=== PATIENT | female | born 1990 | race Two or more races ===

== ENCOUNTER 2017-03-07 13:38 | Inpatient (IN) | payer BC ==
[~2017-03-07 13:38] MED LIST: Bupivacaine 0.25% 10 ML SDV ONE
[2017-03-07] MEDS ORDERED: Lidocaine 1% 50 ML MDV INJECT PRN (14:20)
[2017-03-07] MEDS ORDERED: Sodium Chloride 0.9% 10 ML Syringe FLUSH PRN (14:20)
[2017-03-07] MEDS ORDERED: Oxytocin/Lactated Ringers 10 UNIT/1,000 ML BAG IV SCH (14:30)
[2017-03-07] MEDS: Lactated Ringers 1,000 ML IV SCH ×2 (15:01→18:52)
[2017-03-07] MEDS: Oxytocin/Lactated Ringers 10 UNIT/1,000 ML BAG IV SCH (15:02)
--- NOTE | 2017-03-07 16:11 | PCM.PREANE ---
Preanesthetic Assessment - Anesthesia/Transfusion/Family Hx Anesthesia History: Prior Anesthesia Without Reaction Family History of Anesthesia Reaction: No Transfusion History: No Prior Transfusion(s) - Review of Systems General: No Symptoms Pulmonary: Shortness of Breath (asthma- albuteral inhaler within a week) Cardiovascular: No Symptoms Gastrointestinal: No symptoms Neurological: No Symptoms Other: Reports: None - Physical Assessment Respiratory Rate: 18 Vital Signs: Last Vital Signs Temp 98.1 F 03/07/17 14:20 Pulse 102 H 03/07/17 14:20 Resp 18 03/07/17 14:20 BP 140/87 03/07/17 14:20 Pulse Ox Height: 5 ft 7 in Weight: 97.522 kg ASA Class: 2 Mental Status: Alert & Oriented x3 Airway Class: Mallampati = 1 Dentition: Reports: Normal Dentition Thyro-Mental Finger Breadths: 3 Mouth Opening Finger Breadths: 3 ROM/Head Extension: Full Lungs: Clear to auscultation, Normal respiratory effort Cardiovascular: Regular Rate, Regular Rhythm - Lab Values: platelets 168 - Allergies Allergies/Adverse Reactions: Allergies Allergy/AdvReac Type Severity Reaction Status Date / Time No Known Allergies Allergy Verified 11/15/16 01:48 - Blood Blood Available: No - Acknowledgements Anesthesia Type Planned: Epidural Pt an Appropriate Candidate for the Planned Anesthesia: Yes Alternatives and Risks of Anesthesia Discussed w Pt/Guardian: Yes Pt/Guardian Understands and Agrees with Anesthesia Plan: Yes PreAnesthesia Questionnaire Cardiovascular History: Reports: None Respiratory History: Reports: Asthma Gastrointestinal History: Reports: None : 1 (40 weeks) Para: 0 Musculoskeletal History: Reports: None - Past Surgical History GI Surgical History: Reports: Other (See Below) (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 ) Female Surgical History: Reports: Salpingo-Oophorectomy, Other (See Below) ( scar tissue clean up abdomen) Musculoskeletal Surgical History: Reports: Arthroscopic Knee - SUBSTANCE USE Smoking Status *Q: Never Smoker Tobacco Use Within Last Twelve Months: No Second Hand Smoke Exposure: Yes Days Per Week of Alcohol Use: 0 Recreational Drug Use History: No - HOME MEDS Home Medications: Home Meds Prenat Vit Comb.10/Iron/Fa/Dha [Vitafol-OB + DHA] 1 each PO DAILY 08/01/16 [ History] Acetaminophen [Tylenol] 650 mg PO BID PRN 08/19/16 [History] Albuterol [Ventolin HFA] 2 puff INH ONETIME PRN 03/07/17 [History] - CURRENT (IN HOUSE) MEDS Current Meds: Current Medications Lactated Ringer's (Ringers, Lactated) 1,000 mls @ 100 mls/hr IV ASDIRECTED HAROON Last Admin: 03/07/17 15:01 Dose: 100 mls/hr Oxytocin/Lactated Ringer's (Pitocin In Lr 10 Units/1,000 Ml) 10 unit in 1,000 mls @ 500 mls/hr IV .CONTINUOUS HAROON Oxytocin/Lactated Ringer's (Pitocin In Lr 10 Units/1,000 Ml) 10 unit in 1,000 mls @ 12 mls/hr IV TITRATE [place]; 2 MUNITS/MIN PRN Reason: Protocol Last Admin: 03/07/17 15:02 Dose: 2 munits/min, 12 mls/hr Lidocaine HCl (Xylocaine 1%) 50 ml INJECT ONETIME PRN PRN Reason: Other Sodium Chloride (Saline Flush) 10 ml FLUSH ASDIRECTED PRN PRN Reason: Keep Vein Open
[2017-03-07] MEDS ORDERED: ePHEDrine 50 MG/ML SDV IVPUSH PRN (18:40)
[2017-03-07] MEDS ORDERED: diphenhydrAMINE 50 MG/ML SDV IVPUSH PRN (18:40)
[2017-03-07] MEDS ORDERED: fentaNYL 100 MCG/2 ML SDV EPIDUR PRN (18:40)
[2017-03-07] MEDS: Bupivacaine/fentaNYL/NS 100 ML Bag EPIDUR SCH (18:53)
[2017-03-07] MEDS: Ondansetron 4 MG/2 ML SDV IVPUSH PRN (20:06)
[2017-03-07] MEDS: Acetaminophen 325 MG Tab PO PRN (20:21)
--- NOTE | 2017-03-08 01:59 | PCM.PNLD ---
Labor Progress Note - VS & Meds Vital Signs: Last Vital Signs Temp 36.7 C 03/07/17 14:20 Pulse 102 H 03/07/17 14:20 Resp 18 03/07/17 16:24 BP 140/87 03/07/17 14:20 Pulse Ox Active Medications: Current Medications Acetaminophen (Tylenol) 650 mg PO Q6H PRN PRN Reason: Headache/Pain Last Admin: 03/07/17 20:21 Dose: 650 mg Diphenhydramine HCl (Benadryl) 25 mg IVPUSH Q6H PRN PRN Reason: pruritis Ephedrine Sulfate (Ephedrine Sulfate) 5 mg IVPUSH ASDIRECTED PRN PRN Reason: Hypotension Fentanyl (Sublimaze) 100 mcg EPIDUR Q3H PRN PRN Reason: Pain Last Admin: 03/07/17 18:57 Dose: 100 mcg Fentanyl/Bupivacaine HCl (Fentanyl/Bupivacaine/Ns 2 Mcg-0.125% 100 Ml) 100 ml EPIDUR ASDIRECTED HAR[place]ON Last Admin: 03/07/17 18:53 Dose: 100 ml Lactated Ringer's (Ringers, Lactated) 1,000 mls @ 100 mls/hr IV ASDIRECTED HAR[place]ON Last Admin: 03/07/17 18:52 Dose: 999 mls/hr Oxytocin/Lactated Ringer's (Pitocin In Lr 10 Units/1,000 Ml) 10 unit in 1,000 mls @ 500 mls/hr IV .CONTINUOUS HAROON Oxytocin/Lactated Ringer's (Pitocin In Lr 10 Units/1,000 Ml) 10 unit in 1,000 mls @ 12 mls/hr IV TITRATE [place]ON; 2 MUNITS/MIN PRN Reason: Protocol Last Titration: 03/08/17 01:36 Dose: 10 munits/min, 60 mls/hr Lidocaine HCl (Xylocaine 1%) 50 ml INJECT ONETIME PRN PRN Reason: Other Ondansetron HCl (Zofran) 4 mg IVPUSH Q8H PRN PRN Reason: Nausea/Vomiting Last Admin: 03/07/17 20:06 Dose: 4 mg Sodium Chloride (Saline Flush) 10 ml FLUSH ASDIRECTED PRN PRN Reason: Keep Vein Open - Uterine Contractions Uterine Monitoring Mode: External [place] Contraction Intensity: Irritability Uterine Resting Tone: Soft - Monitoring Heart Rate (FHR) Baseline: 145 Accelerations: Present, 15x15 Decelerations: None Strip Review: Category I - Labor Progress (Free Text) Labor Progress: Pitocin being initiated. Reassuring FHT Induction for non-reactive NST and decreased movement at 40w.
[2017-03-08] MEDS: Lactated Ringers 1,000 ML IV SCH ×2 (02:00→07:13)
--- NOTE | 2017-03-08 02:07 | PCM.PNLD ---
Labor Progress Note - VS & Meds Vital Signs: Last Vital Signs Temp 36.7 C 03/07/17 14:20 Pulse 102 H 03/07/17 14:20 Resp 18 03/07/17 16:24 BP 140/87 03/07/17 14:20 Pulse Ox Active Medications: Current Medications Acetaminophen (Tylenol) 650 mg PO Q6H PRN PRN Reason: Headache/Pain Last Admin: 03/07/17 20:21 Dose: 650 mg Diphenhydramine HCl (Benadryl) 25 mg IVPUSH Q6H PRN PRN Reason: pruritis Ephedrine Sulfate (Ephedrine Sulfate) 5 mg IVPUSH ASDIRECTED PRN PRN Reason: Hypotension Fentanyl (Sublimaze) 100 mcg EPIDUR Q3H PRN PRN Reason: Pain Last Admin: 03/07/17 18:57 Dose: 100 mcg Fentanyl/Bupivacaine HCl (Fentanyl/Bupivacaine/Ns 2 Mcg-0.125% 100 Ml) 100 ml EPIDUR ASDIRECTED HAR[place]ON Last Admin: 03/07/17 18:53 Dose: 100 ml Lactated Ringer's (Ringers, Lactated) 1,000 mls @ 100 mls/hr IV ASDIRECTED HAROON Last Admin: 03/07/17 18:52 Dose: 999 mls/hr Oxytocin/Lactated Ringer's (Pitocin In Lr 10 Units/1,000 Ml) 10 unit in 1,000 mls @ 500 mls/hr IV .CONTINUOUS HAR[place]ON Oxytocin/Lactated Ringer's (Pitocin In Lr 10 Units/1,000 Ml) 10 unit in 1,000 mls @ 12 mls/hr IV TITRATE [place]; 2 MUNITS/MIN PRN Reason: Protocol Last Titration: 03/08/17 01:47 Dose: 8 munits/min, 48 mls/hr Lidocaine HCl (Xylocaine 1%) 50 ml INJECT ONETIME PRN PRN Reason: Other Ondansetron HCl (Zofran) 4 mg IVPUSH Q8H PRN PRN Reason: Nausea/Vomiting Last Admin: 03/07/17 20:06 Dose: 4 mg Sodium Chloride (Saline Flush) 10 ml FLUSH ASDIRECTED PRN PRN Reason: Keep Vein Open - Uterine Contractions Uterine Monitoring Mode: External [place] Contraction Intensity: Irritability Uterine Resting Tone: Soft - Monitoring Heart Rate (FHR) Baseline: 145 Accelerations: Present, 15x15 Decelerations: None Strip Review: Category I - Vaginal Exam Dilation (cm): 4.5 Effacement (Percent): 100 Station: -2 Cervical Position: Midposition Vaginal Exam Comment: BBOW - Labor Progress (Free Text) Labor Progress: Doing well. Category I tracing now. Tolerating pitocin.
[2017-03-08] MEDS: Acetaminophen 325 MG Tab PO PRN ×2 (02:20→07:07)
[2017-03-08] MEDS: Ondansetron 4 MG/2 ML SDV IVPUSH PRN (06:46)
[2017-03-08] MEDS ORDERED: WATER IV ONE ×2 (07:30)
[2017-03-08] MEDS ORDERED: GENTAMICIN IV ONE ×2 (07:30)
[2017-03-08] MEDS ORDERED: Ampicillin 2 GM in Sodium Chloride 0.9% 100 ML IV ONE (07:30)
[2017-03-08] MEDS ORDERED: DEXTROSE 5% IV ONE ×2 (07:30)
[2017-03-08] MEDS: Oxytocin/Lactated Ringers 10 UNIT/1,000 ML BAG IV SCH (08:11)
[2017-03-08] MEDS: Bupivacaine/fentaNYL/NS 100 ML Bag EPIDUR SCH (08:52)
--- NOTE | 2017-03-08 09:56 | PCM.PNLD ---
Labor Progress Note - VS & Meds Vital Signs: Last Vital Signs Temp 38.2 C H 03/08/17 07:07 Pulse 102 H 03/07/17 14:20 Resp 18 03/07/17 16:24 BP 140/87 03/07/17 14:20 Pulse Ox Active Medications: Current Medications Acetaminophen (Tylenol) 650 mg PO Q6H PRN PRN Reason: Headache/Pain Last Admin: 03/08/17 07:07 Dose: 650 mg Diphenhydramine HCl (Benadryl) 25 mg IVPUSH Q6H PRN PRN Reason: pruritis Ephedrine Sulfate (Ephedrine Sulfate) 5 mg IVPUSH ASDIRECTED PRN PRN Reason: Hypotension Fentanyl (Sublimaze) 100 mcg EPIDUR Q3H PRN PRN Reason: Pain Last Admin: 03/07/17 18:57 Dose: 100 mcg Fentanyl/Bupivacaine HCl (Fentanyl/Bupivacaine/Ns 2 Mcg-0.125% 100 Ml) 100 ml EPIDUR ASDIRECTED HAROON Last Admin: 03/08/17 08:52 Dose: 100 ml Lactated Ringer's (Ringers, Lactated) 1,000 mls @ 100 mls/hr IV ASDIRECTED HAROON Last Admin: 03/08/17 07:13 Dose: 100 mls/hr Oxytocin/Lactated Ringer's (Pitocin In Lr 10 Units/1,000 Ml) 10 unit in 1,000 mls @ 500 mls/hr IV .CONTINUOUS [place] Oxytocin/Lactated Ringer's (Pitocin In Lr 10 Units/1,000 Ml) 10 unit in 1,000 mls @ 12 mls/hr IV TITRATE [place]; 2 MUNITS/MIN PRN Reason: Protocol Last Admin: 03/08/17 08:11 Dose: 8 munits/min, 48 mls/hr Lidocaine HCl (Xylocaine 1%) 50 ml INJECT ONETIME PRN PRN Reason: Other Ondansetron HCl (Zofran) 4 mg IVPUSH Q8H PRN PRN Reason: Nausea/Vomiting Last Admin: 03/08/17 06:46 Dose: 4 mg Sodium Chloride (Saline Flush) 10 ml FLUSH ASDIRECTED PRN PRN Reason: Keep Vein Open Discontinued Medications Ampicillin Sodium 2 gm/ Sodium (Chloride) 100 mls @ 200 mls/hr IV NOW ONE Stop: 03/08/17 07:59 Last Admin: 03/08/17 07:44 Dose: 200 mls/hr Gentamicin Sulfate 112 mg/ (Dextrose/Water) 102.8 mls @ 102.8 mls/hr IV ONETIME ONE Stop: 03/08/17 08:29 Last Admin: 03/08/17 08:18 Dose: 102.8 mls/hr - Uterine Contractions Uterine Monitoring Mode: External [place] Contraction Intensity: Moderate to Strong Uterine Resting Tone: Soft - Monitoring Heart Rate (FHR) Baseline: 165 Accelerations: Present, 15x15 Decelerations: Late Strip Review: Category I - Vaginal Exam Dilation (cm): 5.5 Effacement (Percent): 100 Station: -2 Cervical Position: Midposition Vaginal Exam Comment: BBOW - Labor Progress (Free Text) Labor Progress: Continued progress. Some tachycardia and maternal fever now. AROM clear fluid. No odor. Continue close monitoring. Anticipate .
--- NOTE | 2017-03-08 10:00 | PCM.DEL ---
L & D Note - General Info Date of Service: 03/08/17 - Delivery Note Labor: Induced by Oxytocin Delivery Outcome: Livebirth Infant Delivery Mode: Spontaneous Presentation: Vertex Anesthesia Type: Epidural Laceration: 1st Degree Suture type: Vicryl Suture size: 3-0 Delivery Comments (Free Text/Narrative):: . Foul amniotic fluid. - Patient Data Vitals - most recent: Last Vital Signs Temp 38.2 C H 03/08/17 07:07 Pulse 102 H 03/07/17 14:20 Resp 18 03/07/17 16:24 BP 140/87 03/07/17 14:20 Pulse Ox Weight - most recent: 97.522 kg I&O - last 24 hours: Intake & Output 03/07/17 03/08/17 03/08/17 22:59 06:59 14:59 Intake Total 1999 Balance 1999 Lab Results last 24 hrs: Laboratory Results - last 24 hr 03/07/17 Range/Units 15:50 WBC 17.39 H (3.98-10.04) K/mm3 RBC 4.30 (3.98-5.22) M/mm3 Hgb 12.6 (11.2-15.7) gm/L Hct 37.2 (34.1-44.9) % MCV 86.5 (79.4-94.8) fl MCH 29.3 (25.6-32.2) pg MCHC 33.9 (32.2-35.5) g/dl RDW Std Deviation 45.0 (36.4-46.3) fL Plt Count 168 L (182-369) K/mm3 MPV 12.4 H (9.4-12.3) fl Med Orders - Current: Current Medications Acetaminophen (Tylenol) 650 mg PO Q6H PRN PRN Reason: Headache/Pain Last Admin: 03/08/17 07:07 Dose: 650 mg Diphenhydramine HCl (Benadryl) 25 mg IVPUSH Q6H PRN PRN Reason: pruritis Ephedrine Sulfate (Ephedrine Sulfate) 5 mg IVPUSH ASDIRECTED PRN PRN Reason: Hypotension Fentanyl (Sublimaze) 100 mcg EPIDUR Q3H PRN PRN Reason: Pain Last Admin: 03/07/17 18:57 Dose: 100 mcg Fentanyl/Bupivacaine HCl (Fentanyl/Bupivacaine/Ns 2 Mcg-0.125% 100 Ml) 100 ml EPIDUR ASDIRECTED HAROON Last Admin: 03/08/17 08:52 Dose: 100 ml Lactated Ringer's (Ringers, Lactated) 1,000 mls @ 100 mls/hr IV ASDIRECTED HAROON Last Admin: 03/08/17 07:13 Dose: 100 mls/hr Oxytocin/Lactated Ringer's (Pitocin In Lr 10 Units/1,000 Ml) 10 unit in 1,000 mls @ 500 mls/hr IV .CONTINUOUS HAR[place] Oxytocin/Lactated Ringer's (Pitocin In Lr 10 Units/1,000 Ml) 10 unit in 1,000 mls @ 12 mls/hr IV TITRATE HAROON; 2 MUNITS/MIN PRN Reason: Protocol Last Admin: 03/08/17 08:11 Dose: 8 munits/min, 48 mls/hr Lidocaine HCl (Xylocaine 1%) 50 ml INJECT ONETIME PRN PRN Reason: Other Ondansetron HCl (Zofran) 4 mg IVPUSH Q8H PRN PRN Reason: Nausea/Vomiting Last Admin: 03/08/17 06:46 Dose: 4 mg Sodium Chloride (Saline Flush) 10 ml FLUSH ASDIRECTED PRN PRN Reason: Keep Vein Open Discontinued Medications Ampicillin Sodium 2 gm/ Sodium (Chloride) 100 mls @ 200 mls/hr IV NOW ONE Stop: 03/08/17 07:59 Last Admin: 03/08/17 07:44 Dose: 200 mls/hr Gentamicin Sulfate 112 mg/ (Dextrose/Water) 102.8 mls @ 102.8 mls/hr IV ONETIME ONE Stop: 03/08/17 08:29 Last Admin: 03/08/17 08:18 Dose: 102.8 mls/hr - Problem List Review Problem List Initiated/Reviewed/Updated: Yes - My Orders Last 24 Hours: My Active Orders 03/07/17 14:20 Patient Status [ADT] Routine Activity as Tolerated [RC] PFP Communication Order [RC] ASDIRECTED Notify Provider [RC] PFP Notify Provider [RC] PRN Vital Signs [RC] PER UNIT ROUTINE Lidocaine 1% [Xylocaine 1%] 50 ml INJECT ONETIME PRN Sodium Chloride 0.9% [Saline Flush] 10 ml FLUSH ASDIRECTED PRN Electronic Heart Tones Ext w TOCO [WOMSER] Routine Electronic Heart Tones Internal [WOMSER] Per Unit Routine Peripheral IV Insertion Adult [OM.PC] Routine Resuscitation Status Routine 03/07/17 14:21 Peripheral IV Care [RC] Q4HR 03/07/17 14:30 Lactated Ringers [Ringers, Lactated] 1,000 ml IV ASDIRECTED Oxytocin/Lactated Ringers [Pitocin in LR 10 Units/1,000 ML] 10 unit in 1,000 ml IV .CONTINUOUS 03/07/17 14:45 Oxytocin/Lactated Ringers [Pitocin in LR 10 Units/1,000 ML] 10 unit in 1,000 ml IV TITRATE 03/07/17 19:52 Acetaminophen [Tylenol] 650 mg PO Q6H PRN Ondansetron [Zofran] 4 mg IVPUSH Q8H PRN 03/07/17 Dinner Regular Diet [DIET]
[2017-03-08] MEDS ORDERED: Witch Hazel Medicated Pads 100/Jar TOP PRN (11:39)
[2017-03-08] MEDS ORDERED: Benzocaine/Menthol 20%-0.5% Spray 56 GM Canister TOP PRN (11:39)
[2017-03-08] MEDS ORDERED: Docusate Sodium 100 MG Cap PO PRN (11:39)
[2017-03-08] MEDS ORDERED: Lanolin 100% Cream 7 GM Tube TOP PRN (11:39)
[2017-03-08] MEDS: Ibuprofen 600 MG Tab PO PRN (20:02)
[2017-03-09] MEDS: Ibuprofen 600 MG Tab PO PRN ×4 (03:02→23:20)
[2017-03-09] MEDS ORDERED: Measles, Mumps & Rubella Vaccine 0.5 ML SDV SUBCUT ONE (04:32)
--- NOTE | 2017-03-09 09:12 | PCM.PNPP ---
- General Info Date of Service: 03/09/17 Functional Status: Reports: Pain Controlled - Review of Systems General: Reports: No Symptoms HEENT: Reports: No Symptoms Pulmonary: Reports: No Symptoms Cardiovascular: Reports: No Symptoms Gastrointestinal: Reports: No Symptoms Genitourinary: Reports: No Symptoms Musculoskeletal: Reports: No Symptoms Skin: Reports: No Symptoms Neurological: Reports: No Symptoms Psychiatric: Reports: No Symptoms - General Info Date of Service: 03/09/17 - Patient Data Vital Signs - most recent: Last Vital Signs Temp 36.3 C 03/09/17 02:59 Pulse 87 03/09/17 02:59 Resp 16 03/08/17 19:53 BP 107/63 03/09/17 02:59 Pulse Ox 97 03/09/17 02:59 Weight - most recent: 97.522 kg I&O - last 24 hours: Intake & Output 03/08/17 03/09/17 03/09/17 22:59 06:59 14:59 Intake Total 240 Balance 240 Med Orders - Current: Current Medications Benzocaine/Menthol (Dermoplast Pain Relief [place]) 0 gm TOP ASDIRECTED PRN PRN Reason: Perineal Comfort Measure Last Admin: 03/08/17 12:30 Dose: 1 can Docusate Sodium (Colace) 100 mg PO BID PRN PRN Reason: Constipation Emollient Ointment (Lansinoh Hpa) 0 gm TOP ASDIRECTED PRN PRN Reason: Sore Nipples Ibuprofen (Motrin) 600 mg PO Q6H PRN PRN Reason: Mild pain or fever Last Admin: 03/09/17 03:02 Dose: 600 mg Witch Gabi (Tucks) 1 pad TOP ASDIRECTED PRN PRN Reason: Hemorrhoid pain Last Admin: 03/08/17 12:30 Dose: 1 canister Discontinued Medications Acetaminophen (Tylenol) 650 mg PO Q6H PRN PRN Reason: Headache/Pain Last Admin: 03/08/17 07:07 Dose: 650 mg Diphenhydramine HCl (Benadryl) 25 mg IVPUSH Q6H PRN PRN Reason: pruritis Ephedrine Sulfate (Ephedrine Sulfate) 5 mg IVPUSH ASDIRECTED PRN PRN Reason: Hypotension Fentanyl (Sublimaze) 100 mcg EPIDUR Q3H PRN PRN Reason: Pain Last Admin: 03/07/17 18:57 Dose: 100 mcg Fentanyl/Bupivacaine HCl (Fentanyl/Bupivacaine/Ns 2 Mcg-0.125% 100 Ml) 100 ml EPIDUR ASDIRECTED HARO[place] Last Admin: 03/08/17 08:52 Dose: 100 ml Lactated Ringer's (Ringers, Lactated) 1,000 mls @ 100 mls/hr IV ASDIRECTED [place] Last Admin: 03/08/17 07:13 Dose: 100 mls/hr Oxytocin/Lactated Ringer's (Pitocin In Lr 10 Units/1,000 Ml) 10 unit in 1,000 mls @ 500 mls/hr IV .CONTINUOUS [place] Oxytocin/Lactated Ringer's (Pitocin In Lr 10 Units/1,000 Ml) 10 unit in 1,000 mls @ 12 mls/hr IV TITRATE HAR[place]; 2 MUNITS/MIN PRN Reason: Protocol Last Admin: 03/08/17 08:11 Dose: 8 munits/min, 48 mls/hr Ampicillin Sodium 2 gm/ Sodium (Chloride) 100 mls @ 200 mls/hr IV NOW ONE Stop: 03/08/17 07:59 Last Admin: 03/08/17 07:44 Dose: 200 mls/hr Gentamicin Sulfate 112 mg/ (Dextrose/Water) 102.8 mls @ 102.8 mls/hr IV ONETIME ONE Stop: 03/08/17 08:29 Last Admin: 03/08/17 08:18 Dose: 102.8 mls/hr Lidocaine HCl (Xylocaine 1%) 50 ml INJECT ONETIME PRN PRN Reason: Other Measles/Mumps/Rubella Vaccine Live (M-M-R Ii Vaccine) 0.5 ml SUBCUT .ONCE ONE Stop: 03/09/17 04:33 Last Admin: 03/09/17 05:59 Dose: 0.5 ml Ondansetron HCl (Zofran) 4 mg IVPUSH Q8H PRN PRN Reason: Nausea/Vomiting Last Admin: 03/08/17 06:46 Dose: 4 mg Sodium Chloride (Saline Flush) 10 ml FLUSH ASDIRECTED PRN PRN Reason: Keep Vein Open - Interaction Support Person: - Recovery Exam Fundal Tone: Firm Fundal Level: At Umbilicus Fundal Placement: Midline Lochia Amount: Small Lochia Color: Rubra/Red Perineum Description: Other (see below) Other Perinuem Description: First degree with repair Episiotomy/Laceration: Approximated Bladder Status: Voiding Urinary Elimination: Voided - Exam General: alert, oriented HEENT: Pupils equal Neck: supple Lungs: Clear to Auscultation, Normal Respiratory Effort Cardiovascular: Regular Rate, Regular Rhythm GI/Abdominal Exam: Normal Bowel Sounds, Soft, Non-Tender, No Organomegaly, No Distention, No Abnormal Bruit, No Mass, Pelvis Stable Extremities: Normal Inspection, Normal Range of Motion, Non-Tender, No Pedal Edema, Normal Capillary Refill Skin: warm, dry, intact Wound/Incisions: healing well Neurological: no new focal deficit Psy/Mental Status: alert, normal affect, normal mood - Problem List Review Problem List Initiated/Reviewed/Updated: Yes - My Orders Last 24 Hours: My Active Orders 03/08/17 11:39 Activity as Tolerated [RC] PER UNIT ROUTINE Vital Signs [RC] 04,12,20 Benzocaine/Menthol [Dermoplast Pain Relief [place]] See Dose Instructions TOP ASDIRECTED PRN Docusate Sodium [Colace] 100 mg PO BID PRN Ibuprofen [Motrin] 600 mg PO Q6H PRN Lanolin [Lansinoh HPA] See Dose Instructions TOP ASDIRECTED PRN Witch Gabi [Tucks] 1 pad TOP ASDIRECTED PRN Assess Lochia [WOMSER] Per Unit Routine Assess Uterine Involution [WOMSER] Per Unit Routine Breast Pump [WOMSER] Per Unit Routine Heat Therapy [OM.PC] PRN Medication Administration Instruction [OM.PC] Routine Perineal Care [OM.PC] Per Unit Routine Sitz Bath [OM.PC] Per Unit Routine 03/09/17 11:39 Heat Therapy [OM.PC] PRN - Assessment Assessment:: PPD1 after with chorio. Afebrile since delivery. Doing well. Routine care.
--- NOTE | 2017-03-10 06:35 | PCM.DCSUM1 ---
Discharge Summary - Discharge Data Discharge Date: 03/10/17 Discharge Disposition: Home, Self-Care 01 Condition: Good - Patient Instructions Diet: Usual Diet as Tolerated Activity: No Strenuous Activities Driving: May Drive Today Showering/Bathing: May Shower Wound/Incision Care: Keep Operative Site/Wound Site Clean and Dry Notify Provider of: Fever, Increased Pain, Swelling and Redness, Drainage, Nausea and/or Vomiting - Discharge Plan Home Medications: Home Meds Prenat Vit Comb.10/Iron/Fa/Dha [Vitafol-OB + DHA] 1 each PO DAILY 08/01/16 [ History] Acetaminophen [Tylenol] 650 mg PO BID PRN 08/19/16 [History] Albuterol [Ventolin HFA] 2 puff INH ONETIME PRN 03/07/17 [History] Referrals: Vanessa Ramos MD [Physician] - - Discharge Summary/Plan Comment DC Time >30 min.: No - General Info Date of Service: 03/10/17 Functional Status: Reports: Pain Controlled - Review of Systems General: Reports: No Symptoms HEENT: Reports: No Symptoms Pulmonary: Reports: No Symptoms Cardiovascular: Reports: No Symptoms Gastrointestinal: Reports: No Symptoms Genitourinary: Reports: No Symptoms Musculoskeletal: Reports: No Symptoms Skin: Reports: No Symptoms Neurological: Reports: No Symptoms Psychiatric: Reports: No Symptoms - Patient Data Vitals - Most Recent: Last Vital Signs Temp 36.8 C 03/10/17 05:23 Pulse 82 03/10/17 05:23 Resp 16 03/10/17 05:23 BP 129/68 03/10/17 05:23 Pulse Ox 99 03/10/17 05:23 Weight - Most Recent: 97.522 kg I&O - Last 24 hours: Intake & Output 03/09/17 03/09/17 03/10/17 14:59 22:59 06:59 Intake Total 180 270 Balance 180 270 Med Orders - Current: Current Medications Benzocaine/Menthol (Dermoplast Pain Relief [place]) 0 gm TOP ASDIRECTED PRN PRN Reason: Perineal Comfort Measure Last Admin: 03/08/17 12:30 Dose: 1 can Docusate Sodium (Colace) 100 mg PO BID PRN PRN Reason: Constipation Emollient Ointment (Lansinoh Hpa) 0 gm TOP ASDIRECTED PRN PRN Reason: Sore Nipples Ibuprofen (Motrin) 600 mg PO Q6H PRN PRN Reason: Mild pain or fever Last Admin: 03/09/17 23:20 Dose: 600 mg Witch Gabi (Tucks) 1 pad TOP ASDIRECTED PRN PRN Reason: Hemorrhoid pain Last Admin: 03/08/17 12:30 Dose: 1 canister Discontinued Medications Acetaminophen (Tylenol) 650 mg PO Q6H PRN PRN Reason: Headache/Pain Last Admin: 03/08/17 07:07 Dose: 650 mg Bupivacaine HCl (Sensorcaine-Mpf 0.25%) 10 ml .ROUTE .ST-MED ONE Stop: 03/07/17 11:40 Diphenhydramine HCl (Benadryl) 25 mg IVPUSH Q6H PRN PRN Reason: pruritis Ephedrine Sulfate (Ephedrine Sulfate) 5 mg IVPUSH ASDIRECTED PRN PRN Reason: Hypotension Fentanyl (Sublimaze) 100 mcg EPIDUR Q3H PRN PRN Reason: Pain Last Admin: 03/07/17 18:57 Dose: 100 mcg Fentanyl/Bupivacaine HCl (Fentanyl/Bupivacaine/Ns 2 Mcg-0.125% 100 Ml) 100 ml EPIDUR ASDIRECTED [place] Last Admin: 03/08/17 08:52 Dose: 100 ml Lactated Ringer's (Ringers, Lactated) 1,000 mls @ 100 mls/hr IV ASDIRECTED [place] Last Admin: 03/08/17 07:13 Dose: 100 mls/hr Oxytocin/Lactated Ringer's (Pitocin In Lr 10 Units/1,000 Ml) 10 unit in 1,000 mls @ 500 mls/hr IV .CONTINUOUS [place] Oxytocin/Lactated Ringer's (Pitocin In Lr 10 Units/1,000 Ml) 10 unit in 1,000 mls @ 12 mls/hr IV TITRATE [place]; 2 MUNITS/MIN PRN Reason: Protocol Last Admin: 03/08/17 08:11 Dose: 8 munits/min, 48 mls/hr Ampicillin Sodium 2 gm/ Sodium (Chloride) 100 mls @ 200 mls/hr IV NOW ONE Stop: 03/08/17 07:59 Last Admin: 03/08/17 07:44 Dose: 200 mls/hr Gentamicin Sulfate 112 mg/ (Dextrose/Water) 102.8 mls @ 102.8 mls/hr IV ONETIME ONE Stop: 03/08/17 08:29 Last Admin: 03/08/17 08:18 Dose: 102.8 mls/hr Lidocaine HCl (Xylocaine 1%) 50 ml INJECT ONETIME PRN PRN Reason: Other Measles/Mumps/Rubella Vaccine Live (M-M-R Ii Vaccine) 0.5 ml SUBCUT .ONCE ONE Stop: 03/09/17 04:33 Last Admin: 03/09/17 05:59 Dose: 0.5 ml Ondansetron HCl (Zofran) 4 mg IVPUSH Q8H PRN PRN Reason: Nausea/Vomiting Last Admin: 03/08/17 06:46 Dose: 4 mg Sodium Chloride (Saline Flush) 10 ml FLUSH ASDIRECTED PRN PRN Reason: Keep Vein Open - Exam General: Reports: alert, oriented HEENT: Reports: Pupils equal, Pupils reactive, EOMI, Mucous membr. moist/pink Neck: Reports: supple Lungs: Reports: Clear to Auscultation, Normal Respiratory Effort Cardiovascular: Reports: Regular Rate, Regular Rhythm GI/Abdominal Exam: Non-Tender, Other ([id number]) (Female) Exam: Normal External Exam, Normal Speculum Exam, Normal Bimanual Exam Rectal (Female) Exam: Normal Exam, Normal Rectal Tone Back Exam: Reports: Normal Inspection, Full Range of Motion Extremities: Normal Inspection, Normal Range of Motion, Non-Tender, No Pedal Edema, Normal Capillary Refill Skin: Reports: warm, dry, intact Wound/Incisions: Reports: healing well Neurological: Reports: no new focal deficit Psy/Mental Status: Reports: alert, normal affect, normal mood *Q Meaningful Use (DIS) - VTE *Q VTE Criteria *Q: - Stroke *Q Stroke Criteria *Q: - AMI *Q AMI Criteria *Q:
[2017-03-10] MEDS: Ibuprofen 600 MG Tab PO PRN (08:46)
[2017-03-10 11:15] VITALS: BP 121/79
== END 2017-03-10 10:45 | disposition home or self-care (01) | DRG 560 ==
LOC: JD.OB 13:38 → JD.MS 03-08 09:41 → OBSVTOIN 03-08 09:41 → JD.OB 03-08 13:43
PROVIDERS: ADMIT Obstetrics & Gynecology; ATTEND Obstetrics & Gynecology
PROC: 10E0XZZ Delivery of Products of Conception, External Approach (ICD-10-PCS; principal; 2017-03-08)
PROC: 3E033VJ Introduction of Other Hormone into Peripheral Vein, Percutaneous Approach (ICD-10-PCS; 2017-03-08)
PROC: 10907ZC Drainage of Amniotic Fluid, Therapeutic from Products of Conception, Via Natural or Artificial Opening (ICD-10-PCS; 2017-03-08)
PROC: 0HQ9XZZ Repair Perineum Skin, External Approach (ICD-10-PCS; 2017-03-08)
PROC: 00HU33Z Insertion of Infusion Device into Spinal Canal, Percutaneous Approach (ICD-10-PCS; 2017-03-08)
PROC: 3E0R3CZ (ICD-10-PCS; 2017-03-08)
PROC: 3E0234Z Introduction of Serum, Toxoid and Vaccine into Muscle, Percutaneous Approach (ICD-10-PCS; 2017-03-09)
DX: O76 Abnormality in fetal heart rate and rhythm complicating labor and delivery (principal); O36.8130 Decreased fetal movements, third trimester, not applicable or unspecified; O99.52 Diseases of the respiratory system complicating childbirth; J45.909 Unspecified asthma, uncomplicated; O70.0 First degree perineal laceration during delivery; O75.2 Pyrexia during labor, not elsewhere classified; O41.1230 Chorioamnionitis, third trimester, not applicable or unspecified; Z3A.40 40 weeks gestation of pregnancy; Z37.0 Single live birth; Z23 Encounter for immunization
CPT/HCPCS: 36415; 85027; 88307; 88307-26; 90707; A9270-GY; J0290; J1580; J2405; J2590; J3010; J7030; J7060; J7120